=== PATIENT | female | born 1970 | race Two or more races ===

== ENCOUNTER 2019-03-24 13:08 | Emergency (ER) | payer OTHER ==
[~2019-03-24] VITALS: Ht 154.9 cm; Wt 59.1 kg
[2019-03-24 13:20] VITALS: BP 110/57
== END 2019-03-24 14:28 | disposition home or self-care (01) ==
LOC: ER 13:10
DX: S93.492A Sprain of other ligament of left ankle, initial encounter (principal); V29.9XXA Motorcycle rider (driver) (passenger) injured in unspecified traffic accident, initial encounter; Y93.89 Activity, other specified; Y92.89 Other specified places as the place of occurrence of the external cause; Y99.8 Other external cause status
CPT/HCPCS: 73610; 99284